=== PATIENT | male | born 1965 | race Caucasian/White ===

== ENCOUNTER → 2025-06-05 10:28 | Outpatient (REF) | payer BC, SELFPAY | LOC: RCS 10:28 | PROVIDERS: ATTENDING PHYSICIAN Nurse Practitioner Adult Health | DX: I49.8 Other specified cardiac arrhythmias (principal) | CPT/HCPCS: 93225; 93226 ==

== ENCOUNTER 2025-06-16 01:10 | Emergency (ER) | payer BC, SELFPAY ==
[2025-06-16 01:14] VITALS: BP 152/104
[2025-06-16 01:24] VITALS: BMI 28.5
--- NOTE | 2025-06-16 01:24 | ED.GENMED ---
History of Present Illness
General
Chief Complaint: Heart Rate Problem
Source: patient
Exam Limitations: none
Time Seen by Provider: 06/16/25 01:22
Nursing documentation reviewed up to this point in time: agreed with
History of Present Illness
History of Present Illness:
60-year-old male with a history of sleep apnea, recent diagnosis of A-fib, presents to the ER today with concerns of a episode of palpitations waking him up from sleep. This occurred at around 11:30 PM. Patient believes it lasted probably 30 to 45
minutes. He reports that when he lays on his left side, he will sometimes feel palpitations. This is the most noticeable episode he has had--previously, he would just relax and they would go away on their own. Previously, these episodes have been
intermittent for the past few months and he described the symptoms to his PCP who ordered Holter monitoring which revealed that he was in A-fib most of the time. Patient denies chest pain or shortness of breath, denies dizziness. Currently, he is
asymptomatic. He denies any recent infections, any recent fevers or chills. He does not recall what his heart rate was at earlier today. He reports that currently he is not taking anything for rate control. He is not taking any beta-mamie. He
is not on any anticoagulation because of his low chads-vasc score. He is acutely hypertensive in the ER however patient reports that his blood pressure is usually systolically 130s and his PCP has decided not to start him on any medication just
yet. He denies back pain, abdominal pain, nausea, vomiting, lightheadedness, syncopal episodes. He drinks 2 cups of coffee daily. He does not smoke. He is compliant with his CPAP mask.
Past History
Past History
ED Past Medical History: None
ED Past Surgical History: Appendectomy
Social History
Tobacco: Non-smoker
Drug: None
Personal:
Living: with family
Family History
Family History: Negative Early CAD, CAD or Other
Review of Systems
Review of Systems
All Other Systems: ROS reviewed and negative except as documented in HPI and ROS
Phy Exam
Physical Exam
Physical Exam:
General: Patient is well appearing and in no acute distress; non-toxic
Skin: Warm and dry, no rashes or lesions
Head: Normocephalic, atraumatic
Eyes: Sclera non-icteric. EOMs intact.
Cardiac: Heart rate irregularly irregular, no murmurs
Peripheral Vascular: No lower extremity swelling or edema
Pulm: Normal respiratory effort, no wheezes, rales, rhonchi
Neuro: CN II-XII intact, no focal neurologic deficits.
Psychiatric: Appropriate mood and affect.
Course
Orders/Labs/Results
Orders:
Orders
06/16/25 01:20
Electrocardiogram (*1) Urgent
Reason for Study: Other
Other Reason for Exam: Respiratory Distress
Cardiac Monitoring- Treatment ONCE
EKG- Treatment ONCE
IV Insert/Care/Rem.- Treatment PRN
Pulse Ox/cont/shift [RESP] Urgent
Quantity: 1
Special Instructions: continuous pulse ox
06/16/25 01:30
Complete Blood Count/With Diff Urgent
Comprehensive Metabolic Panel Urgent
Free T4 Urgent
Magnesium Urgent
Comment: ADD ON
NT-proBNP Urgent
TSH Reflex To Free T4 Urgent
Comment: ADD ON
Troponin I Urgent
06/16/25 01:39
Add On- LAB Urgent
Tests Added?: magnesium, TSH reflex T4
Abnormal Lab Results
06/16/25
01:30
RBC 3.49 L 10^6/uL
(4.70-6.10)
Hgb 11.4 L g/dL
(13.0-18.0)
Hct 33.9 L %
(39.0-52.0)
MCV 97.1 H fL
(80.0-94.0)
MCH 32.7 H pg
(27.0-31.0)
Plt Count 126 L 10^3/uL
(130-400)
Monocytes % 10.4 H %
(1.7-9.3)
Eosinophils % 6.4 H %
(0-6)
Glucose 103 H mg/dl
(70-99)
TSH (Reflex) 5.61 H uIU/ml
(0.47-4.68)
06/16/25 01:30
06/16/25 01:30
Vital Signs
Initial and Last Documented VS:
Initial Vital Signs
Temp Pulse Resp BP Pulse Ox
98.4 F 75 20 152/104 100
06/16/25 01:14 06/16/25 01:14 06/16/25 01:14 06/16/25 01:14 06/16/25 01:14
Last Documented Vital Signs
Temp Pulse Resp BP Pulse Ox
98.4 F 62 13 152/104 96
06/16/25 01:14 06/16/25 01:45 06/16/25 01:45 06/16/25 01:14 06/16/25 01:45
MDM/Problems Addressed
Differential Diagnosis Includes:
Differentials include atrial fibrillation, sinus tachycardia, ACS, hyperthyroidism, electrolyte derangement
MDM/Problems Addressed:
60-year-old male with recent new diagnosis of A-fib presents to the ER today with concerns of palpitations. Symptoms resolved upon arrival to the ER. On physical exam, he is well-appearing no acute distress his heart rate is currently in the 60s
to 70s. He is hypertensive. Will monitor on telemetry. Will check blood work. Patient has a cardiology appointment with CBC on June 20 at 4:10 PM.
Labs reviewed, patient has mild anemia today this will need to be rechecked with primary care provider. Mild thrombocytopenia noted which PCP is aware of and has been documented no evidence of bleeding no signs of symptoms of GI bleeding today.
Reviewed CMP, mild thrombocytopenia noted last time checked on June 03, 2025 at that time was 122, today 126 PCP aware who will check vitamin B-12 and folate levels as well. Reviewed telemetry, no rapid A-fib noted, no tachycardic rhythm.
Troponin undetectable. ED attending aware of case. No indication for repeat at this time as patient is chest pain-free and did not have chest pain during this past evening. proBNP 630. No signs of fluid overload or CHF today. Patient is stable to
follow up as an outpatient with his scheduled cards appointment later this week. Will hold off on anticoagulation at this time.
Chronic conditions affecting care:
sleep apnea
*Pulse Oximetry
SaO2: 100
Oxygen Mode of Delivery: Room air
Patient hypoxic: no
*EKG
Interpreted by ED Provider?: Yes
EKG Intrepretation Date: 06/16/25
Interpretation: abnormal
Comparison EKG: changes noted (patient previously in normal sinus rhyth with rsr' with slight ST elevation in V1)
Heart Rate: 71
Rate: normal
Rhythm: a-fib
[place]: normal axis
QRS Pattern: normal QRS
Ischemia: no ischemia
*Critical Care Note
Total Time (30-74mins, 75-104mins- exclusive of procedures): Not Applicable
Data Reviewed
Review of Other/Old Records Reveals: Records (Reviewed visit from June 03, 2025 patient seen by PCP Holter monitor was ordered blood pressure was controlled at that time we did recommend a low dose of Toprol but patient will start a blood pressure
log instead) and Discharge Summary (no discharge summary in [facility] to review)
Source: patient and records
Patient Management
Escalation/DeEscalation of care consider admission/obs:
No indication for admission at this time
ED Attending Note
-
Portions of this chart may have been created with voice recognition software.� Occasional wrong word or��sound alike� substitutions may have occurred due to the inherent limitations of voice recognition software.
Discharge Plan
Departure
Patient Disposition: Home (Routine Discharge)
Date of Disposition: 06/16/25
Time of Disposition: 02:44
Patient with high blood pressure during this ER visit?: Yes
Condition: Good
Discharge Problem:
Atrial fibrillation
Instructions: Atrial Fibrillation (DC), Palpitations (DC), BLOOD PRESSURE
Prescriptions:
No Action
hydrocodone-acetaminophen 1 TABLET tablet
1 - 2 tab PO Q4HPRN PRN (Reason: moderate to severe pain) Qty: 20 0RF
Referrals:
Reena Olson MD [Family Provider, Internal Medicine]
Beatriz Healy MD [Active, Cardiology] - Keep scheduled appt
Activity Restrictions/Additional Instructions:
As discussed, please follow-up with your scheduled cardiology appointment on Monday. Please continue to monitor your symptoms.
Please return should you develop CHEST PAIN, JAW PAIN, PERSISTENT LEFT-SIDED ARM OR SHOULDER PAIN, DIZZINESS, LIGHTHEADEDNESS, SHORTNESS OF BREATH, WEAKNESS IN ONE-SIDED BODY VERSUS OTHER, PARESTHESIAS, CONFUSION, OR ANY OTHER SIGNS OR SYMPTOMS
WORRISOME TO YOU.
Interventions
Interventions:
*Risk Screen - Suicide Last Done: 06/16/25 01:14
*General Assessment Last Done: 06/16/25 01:14
*Neglect/Abuse Screening Last Done: 06/16/25 01:14
*ED- Fall Risk Assessment Last Done: 06/16/25 01:14
*ED COVID-19 Vaccine History Last Done: 06/16/25 01:14
*Nursing Disposition Last Done: 06/16/25 03:07
ED- Cardiac Assessment Last Done: 06/16/25 01:25
ED- Pulmonary Assessment Last Done: 06/16/25 01:25
Discharge Date and Time
Print Language: COMORAN
[2025-06-16 01:36] LABS: Hematocrit 33.9 % (39.0-52.0); Hemoglobin 11.4 g/dL (13.0-18.0); Mean Corp Hgb Conc. 33.6 g/dL (33.0-37.0); Mean Corpuscular Volume 97.1 fL (80.0-94.0); Nucleated Red Blood Cells % 0 % (-); Platelet Count 126 10^3/uL (130-400); Red Cell Dist. Width 13.3 % (11.5-14.5)
[2025-06-16 02:00] VITALS: BP 131/84
[2025-06-16 02:02] LABS: ALT (SGPT) 36 U/L (0-50); AST (SGOT) 33 U/L (17-59); Albumin 4.9 g/dl (3.5-5.0); Alkaline Phosphatase 64 U/L (38-126); Blood Urea Nitrogen 17 mg/dl (9-20); Calcium 9.4 mg/dl (8.4-10.2); Carbon Dioxide 28 mmol/L (22-30); Chloride 106 mmol/L (98-107); Estimated Creatinine Clearance 97 ml/min; Glucose 103 mg/dl (70-99); Magnesium 2.0 mg/dl (1.6-2.3); Potassium 3.8 mmol/L (3.5-5.1); Sodium 140 mmol/L (135-145); Total Protein 7.4 g/dl (6.3-8.2); eGFR > 60.00
[2025-06-16 02:14] LABS: Troponin I < 0.012 ng/ml
== END 2025-06-16 03:07 | disposition home or self-care (01) ==
LOC: EMR 01:10
PROVIDERS: EMERGENCY PHYSICIAN Emergency Medicine; FAMILY PHYSICIAN Internal Medicine
DX: I48.91 Unspecified atrial fibrillation (principal); R03.0 Elevated blood-pressure reading, without diagnosis of hypertension; D64.9 Anemia, unspecified; D69.6 Thrombocytopenia, unspecified; G47.30 Sleep apnea, unspecified
CPT/HCPCS: 99284; 80053; 83735; 83880; 84439; 84443; 84484; 85025; 93005

== ENCOUNTER → 2025-07-02 07:18 | Outpatient (REF) | payer BC, SELFPAY | LOC: HWRCS 07:18 | PROVIDERS: ATTENDING PHYSICIAN Internal Medicine Cardiovascular Disease; FAMILY PHYSICIAN Nurse Practitioner Adult Health | DX: I48.91 Unspecified atrial fibrillation (principal) | CPT/HCPCS: 93306 ==

== ENCOUNTER 2025-07-11 09:48 | Day surgery (SDC) | payer BC, SELFPAY ==
--- NOTE | 2025-07-11 13:17 | ITS.CL.CARDI ---
Machine Whitener - Cardioversion
Cardioversion
Procedure Report:
Procedure: Direct current electrical cardioversion
Pre-operative diagnosis: Persistent atrial fibrillation
Post-operative diagnosis: Persistent atrial fibrillation status post DC cardioversion to sinus rhythm
Anesthesia: MAC
Attending Physician: Edison Blackmon MD
Procedure Description: The patient was brought to the electrophysiology laboratory in the fasting state. Adherence to anticoagulation regimen was confirmed. Informed consent was obtained from the patient prior to the start of the procedure.
Electrodes were placed on the patient and connected to an external defibrillator. Monitoring of blood pressure, ECG tracings, and pulse oximetry was initiated. The pads were applied to the patient in the anterior and posterior positions. The patient
was sedated by the anesthesiologist. A 200 joule biphasic synchronized shock was delivered to the patient under MAC anesthesia. Sinus rhythm was successfully restored. The patient recovered uneventfully from MAC anesthesia. There were no immediate
post-procedure complications. The patient left the lab in good condition. The attending physician was present throughout the entire procedure.
Impression: Successful direct current cardioversion with christian of sinus rhythm after one 200 joule biphasic synchronized shock.
== END 2025-07-11 12:05 | disposition home or self-care (01) ==
LOC: CATH 09:48
PROVIDERS: ATTENDING PHYSICIAN Internal Medicine Cardiovascular Disease; FAMILY PHYSICIAN Internal Medicine; OTHER PHYSICIAN Internal Medicine Cardiovascular Disease
DX: I48.19 Other persistent atrial fibrillation (principal)
CPT/HCPCS: 92960; 93005

== ENCOUNTER 2025-08-21 09:43 | Emergency (ER) | payer OTHER, SELFPAY ==
[2025-08-21 09:45] VITALS: BP 155/107
--- NOTE | 2025-08-21 10:23 | ED.GENMED ---
History of Present Illness
General
Chief Complaint: Heart Rate Problem
Time Seen by Provider: 08/21/25 09:49
History of Present Illness
History of Present Illness:
Patient is a 60-year-old male with history of paroxysmal A-fib currently not on anticoagulation presenting to the emergency department with palpitations. Per chart patient was diagnosed with atrial fibrillation on outpatient Holter monitoring. He
did have a cardioversion completed on July 11. He did stop Eliquis on August 08 as he wanted to play ice hockey. This past week he notes that he would go back into A-fib. His watch did alert him. He did restart Eliquis this past week. Today
when he was walking he started to get a little dizzy and his heart rate was in the 110s. He did not perform an EKG but felt as if he was in A-fib again. He pauses and since then does feel a lot better. He denies any chest pain difficulty
breathing nausea vomiting chest pain. This was the first time he got lightheaded dizzy. He does state that during his exercising he has noticed that he is going into A-fib more frequently.
Past History
Past History
ED Past Medical History: None
ED Past Surgical History: Appendectomy
Social History
Tobacco: Non-smoker
Drug: None
Personal:
Living: with family
Family History
Family History: Negative Early CAD, CAD or Other
Phy Exam
Physical Exam
Physical Exam:
GENERAL: in no acute distress
HEENT: normocephalic, extraocular movements intact, moist oral mucosa
NECK: normal inspection
RESPIRATORY: no respiratory distress, clear to auscultation bilaterally
CARDIOVASCULAR: regular rate and rhythm
ABDOMEN/: soft, non-distended, non-tender to palpation, no rebound or guarding
EXTREMITIES: non-tender, no edema/swelling
NEUROLOGIC: awake and alert, moves all extremities
SKIN: warm
Course
Orders/Labs/Results
Orders:
Orders
08/21/25 09:50
ECG [Electrocardiogram (*1)] Urgent
Reason for Study: Palpitations
EKG- Treatment ONCE
08/21/25 10:19
Basic Metabolic Panel Urgent
Complete Blood Count/With Diff Urgent
Magnesium Urgent
Abnormal Lab Results
08/21/25
10:19
RBC 4.36 L 10^6/uL
(4.70-6.10)
MCH 31.4 H pg
(27.0-31.0)
Immature Gran % 0.8 H %
(0-0.5)
08/21/25 10:19
08/21/25 10:19
Vital Signs
Initial and Last Documented VS:
Initial Vital Signs
Temp Pulse Resp BP Pulse Ox
98.2 F 107 18 155/107 99
08/21/25 09:45 08/21/25 09:45 08/21/25 09:45 08/21/25 09:45 08/21/25 09:45
Last Documented Vital Signs
Temp Pulse Resp BP Pulse Ox
98.2 F 107 18 155/107 99
08/21/25 09:45 08/21/25 09:45 08/21/25 09:45 08/21/25 09:45 08/21/25 10:24
MDM/Problems Addressed
Differential Diagnosis Includes:
Patient is a 60-year-old male with history of paroxysmal A-fib presenting to the emergency department with concerns for being in A-fib. On arrival patient's vital signs are notable for being in the 90s. During my evaluation patient's heart rate
and rhythm on the monitor was normal sinus rhythm. Exam is otherwise reassuring. Concern for paroxysmal A-fib versus electrolyte derangement. Consider thyroid abnormality. After shared decision making we will check blood work. EKG per my
interpretation normal sinus rhythm with prolonged MN interval. I did discuss with cardiology. They did state that patient has a EP appointment on September 08. Recommended keeping that appointment. Recommending staying on Eliquis. Given the
patient is paroxysmal and not appropriately anticoagulated he is not a candidate for cardioversion or antiarrhythmics at this time.
*Pulse Oximetry
SaO2: 99
Oxygen Mode of Delivery: Room air
Patient hypoxic: no
*Critical Care Note
Total Time (30-74mins, 75-104mins- exclusive of procedures): Not Applicable
Update Note
Update Note:
Patient remained in sinus rhythm during his visit. Patient without any recurrence of his symptoms since he has been here. Blood work reassuring. Will discharge patient at this time. He will stay on Eliquis. He will keep his appointment with
cardiology on September 08. Strict return precautions givwn
ED Attending Note
-
Portions of this chart may have been created with voice recognition software.� Occasional wrong word or��sound alike� substitutions may have occurred due to the inherent limitations of voice recognition software.
Discharge Plan
Departure
Patient Disposition: Home (Routine Discharge)
Date of Disposition: 08/21/25
Time of Disposition: 11:05
Patient with high blood pressure during this ER visit?: Yes
Discharge Problem:
Paroxysmal A-fib
Instructions: Atrial Fibrillation (DC)
Prescriptions:
No Action
hydrocodone-acetaminophen 1 TABLET tablet
1 - 2 tab PO Q4HPRN PRN (Reason: moderate to severe pain) Qty: 20 0RF
Eliquis 5 mg Tablet
5 mg PO BID
Referrals:
Reena Olson MD [Family Provider, Internal Medicine]
Activity Restrictions/Additional Instructions:
Thank You for choosing [facility].
It was a pleasure meeting you and taking part in your care. We hope for your continued healing and wellness.
You were seen in the Emergency Department today for atrial fibrillation. While you were here we performed blood work, which was reassuring. Please make sure you continue taking the Eliquis as discussed. Please keep your appointment with cardiology
on September 08.
We would like for you to follow up with your primary care physician for further evaluation. If you experience fever, worsening of your symptoms, or develop any other new or concerning symptoms, please return to the Emergency Department immediately.
Please see the attached sheet for additional information.
Interventions
Interventions:
*Risk Screen - Suicide Last Done: 08/21/25 09:45
*General Assessment Last Done: 08/21/25 09:45
Discharge Date and Time
Print Language: SLOVAK
[2025-08-21 10:40] LABS: Hematocrit 40.1 % (39.0-52.0); Hemoglobin 13.7 g/dL (13.0-18.0); Mean Corp Hgb Conc. 34.2 g/dL (33.0-37.0); Mean Corpuscular Volume 92.0 fL (80.0-94.0); Nucleated Red Blood Cells % 0 % (-); Platelet Count 139 10^3/uL (130-400); Red Cell Dist. Width 12.1 % (11.5-14.5)
[2025-08-21 10:56] LABS: Blood Urea Nitrogen 14 mg/dl (9-20); Calcium 9.3 mg/dl (8.4-10.2); Carbon Dioxide 30 mmol/L (22-30); Chloride 103 mmol/L (98-107); Glucose 93 mg/dl (70-99); Magnesium 2.0 mg/dl (1.6-2.3); Potassium 4.1 mmol/L (3.5-5.1); Sodium 135 mmol/L (135-145); eGFR > 60.00
== END 2025-08-21 11:18 | disposition home or self-care (01) ==
LOC: EMR 09:43
PROVIDERS: EMERGENCY PHYSICIAN Student in an Organized Health Care Education/Training Program; FAMILY PHYSICIAN Internal Medicine
DX: I48.0 Paroxysmal atrial fibrillation (principal); Z90.49 Acquired absence of other specified parts of digestive tract
CPT/HCPCS: 99284; 80048; 83735; 85025; 93005

== ENCOUNTER 2025-08-29 09:19 | Emergency (ER) | payer OTHER, SELFPAY ==
[2025-08-29 09:23] VITALS: BP 165/103
[2025-08-29 11:19] VITALS: BP 165/102
[2025-08-29 11:32] LABS: Hematocrit 40.8 % (39.0-52.0); Hemoglobin 14.1 g/dL (13.0-18.0); Mean Corp Hgb Conc. 34.6 g/dL (33.0-37.0); Mean Corpuscular Volume 90.9 fL (80.0-94.0); Platelet Count 147 10^3/uL (130-400); Red Cell Dist. Width 12.2 % (11.5-14.5)
[2025-08-29 11:46] LABS: ALT (SGPT) 42 U/L (0-50); AST (SGOT) 39 U/L (17-59); Albumin 5.0 g/dl (3.5-5.0); Alkaline Phosphatase 86 U/L (38-126); Blood Urea Nitrogen 11 mg/dl (9-20); Calcium 9.6 mg/dl (8.4-10.2); Carbon Dioxide 29 mmol/L (22-30); Chloride 102 mmol/L (98-107); Estimated Creatinine Clearance 97 ml/min; Glucose 93 mg/dl (70-99); Potassium 4.2 mmol/L (3.5-5.1); Sodium 136 mmol/L (135-145); Total Protein 7.8 g/dl (6.3-8.2); eGFR > 60.00
--- NOTE | 2025-08-29 11:47 | ED.GENMED ---
History of Present Illness
General
Chief Complaint: Heart Rate Problem
Time Seen by Provider: 08/29/25 11:04
History of Present Illness
History of Present Illness:
60-year-old male with history of paroxysmal A-fib presents emergency department for evaluation of recurrent bouts of palpitations abdominal A-fib seen on his Gar[employer] watch. He went a cardioversion for A-fib approximate 6 weeks ago, sinus emergency
department last week for a similar complaint he was found to be in sinus rhythm. Presents today reporting heart rates return after a standing walk exceeding 130 with again his Garmin watch alerting him to being in A-fib. Currently feels well with
no complaints. No chest pain or dyspnea.
Past History
Past History
ED Past Medical History: None
ED Past Surgical History: Appendectomy
Social History
Tobacco: Non-smoker
Drug: None
Personal:
Living: with family
Family History
Family History: Negative Early CAD, CAD or Other
Review of Systems
Review of Systems
Allergies reviewed?: Yes
All Other Systems: ROS reviewed and negative except as documented in HPI and ROS
Phy Exam
Physical Exam
Physical Exam:
GEN: Well appearing, NAD, WDWN
HEENT: Oral mucosa moist, no scleral icterus
Cardiac: Regular rate and rhythm, no murmur
Lung: No respiratory distress, no tachypnea, lungs clear to auscultation
MSK: No gross deformity or injuries
Skin: Good color, no pallor or jaundice, no rashes
Neuro: AO x3, moves all extremities freely
Psych: Calm, cooperative
Course
Orders/Labs/Results
Orders:
Orders
08/29/25 09:26
Electrocardiogram (*1) Urgent
Reason for Study: Atrial Fibrillation
EKG- Treatment ONCE
08/29/25 11:16
Electrocardiogram (*1) Urgent
Reason for Study: Atrial Fibrillation
08/29/25 11:25
Complete Blood Count/No Diff Urgent
08/29/25 11:26
Comprehensive Metabolic Panel Urgent
08/29/25 11:49
Metoprolol Xl [Toprol Xl] 25 mg PO NOW STA
Abnormal Lab Results
08/29/25
11:25
RBC 4.49 L 10^6/uL
(4.70-6.10)
MCH 31.4 H pg
(27.0-31.0)
08/29/25 11:25
08/29/25 11:26
Vital Signs
Initial and Last Documented VS:
Initial Vital Signs
Temp Pulse Resp BP Pulse Ox
98.1 F 92 18 165/103 100
08/29/25 09:23 08/29/25 09:23 08/29/25 09:23 08/29/25 09:23 08/29/25 09:23
Last Documented Vital Signs
Temp Pulse Resp BP Pulse Ox
98.1 F 88 16 165/102 100
08/29/25 09:23 08/29/25 11:47 08/29/25 11:45 08/29/25 11:19 08/29/25 11:49
MDM/Problems Addressed
MDM/Problems Addressed:
Telemetry noted patient to have multiple runs of atrial tachycardia that self terminated. He was not in A-fib at any point. Discussed case with his glove finisher on-call and will add beta-mamie therapy, he is provided with rhythm strips for
follow-up with cardiology
*Pulse Oximetry
SaO2: 100
Oxygen Mode of Delivery: Room air
Patient hypoxic: no
*Critical Care Note
Total Time (30-74mins, 75-104mins- exclusive of procedures): Not Applicable
ED Attending Note
-
Portions of this chart may have been created with voice recognition software.� Occasional wrong word or��sound alike� substitutions may have occurred due to the inherent limitations of voice recognition software.
Discharge Plan
Departure
Patient Disposition: Home (Routine Discharge)
Date of Disposition: 08/29/25
Time of Disposition: 11:48
Patient with high blood pressure during this ER visit?: No
Discharge Problem:
Atrial tachycardia
Instructions: Tachycardia
Prescriptions:
New
metoprolol succinate 25 mg tablet extended release 24 hr
25 mg PO DAILY Qty: 30 0RF
No Action
hydrocodone-acetaminophen 1 TABLET tablet
1 - 2 tab PO Q4HPRN PRN (Reason: moderate to severe pain) Qty: 20 0RF
Eliquis 5 mg Tablet
5 mg PO BID
Activity Restrictions/Additional Instructions:
Continue with follow up plan with Dr Stewart on September 08
Interventions
Interventions:
*Risk Screen - Suicide Last Done: 08/29/25 09:23
*General Assessment Last Done: 08/29/25 09:23
*Neglect/Abuse Screening Last Done: 08/29/25 09:23
*ED- Fall Risk Assessment Last Done: 08/29/25 11:23
*ED COVID-19 Vaccine History Last Done: 08/29/25 11:23
*ED Influenza Vaccine History Last Done: 08/29/25 11:23
*Nursing Disposition Last Done: 08/29/25 12:15
ED- Cardiac Assessment Last Done: 08/29/25 11:18
ED- Pulmonary Assessment Last Done: 08/29/25 11:18
Discharge Date and Time
Discharge Date/Time: 08/29/25 12:16
Print Language: ARABIC
[2025-08-29] MEDS: TOPROL XL 25 MG PO (11:55)
== END 2025-08-29 12:16 | disposition home or self-care (01) ==
LOC: EMR 09:19
PROVIDERS: Physician Assistant; EMERGENCY PHYSICIAN Student in an Organized Health Care Education/Training Program; FAMILY PHYSICIAN Nurse Practitioner Adult Health
DX: I47.19 Other supraventricular tachycardia (principal); I48.91 Unspecified atrial fibrillation; I44.0 Atrioventricular block, first degree; Z90.49 Acquired absence of other specified parts of digestive tract
CPT/HCPCS: 99283; 80053; 85027; 93005

== ENCOUNTER 2025-09-29 10:25 | Day surgery (SDC) | payer OTHER, SELFPAY ==
[2025-09-22 13:32] VITALS: BMI 27.2
[2025-09-22 13:52] LABS: Hematocrit 37.2 % (39.0-52.0); Hemoglobin 12.6 g/dL (13.0-18.0); Mean Corp Hgb Conc. 33.9 g/dL (33.0-37.0); Mean Corpuscular Volume 92.3 fL (80.0-94.0); Nucleated Red Blood Cells % 0 % (-); Platelet Count 157 10^3/uL (130-400); Red Cell Dist. Width 13.2 % (11.5-14.5)
[2025-09-22 14:39] LABS: ALT (SGPT) 29 U/L (0-50); AST (SGOT) 26 U/L (17-59); Albumin 4.9 g/dl (3.5-5.0); Alkaline Phosphatase 63 U/L (38-126); Blood Urea Nitrogen 14 mg/dl (9-20); Calcium 9.2 mg/dl (8.4-10.2); Carbon Dioxide 29 mmol/L (22-30); Chloride 100 mmol/L (98-107); Estimated Creatinine Clearance 100 ml/min; Glucose 97 mg/dl (70-99); Potassium 4.0 mmol/L (3.5-5.1); Sodium 137 mmol/L (135-145); Total Protein 7.5 g/dl (6.3-8.2); eGFR > 60.00
[2025-09-29] VITALS (13 sets, daily range): BP systolic 105–145; BP diastolic 66–91
[2025-09-29] MEDS: NSS 500 IV (12:22)
[2025-09-29 13:59] LABS: ACT-LR - POC 395 Seconds (116-155)
[2025-09-29 14:24] LABS: ACT-LR - POC 306 Seconds (116-155)
[2025-09-29 14:46] LABS: ACT-LR - POC 313 Seconds (116-155)
[2025-09-29 15:18] LABS: ACT-LR - POC 305 Seconds (116-155)
--- NOTE | 2025-09-29 15:53 | ITS.CL.ABL ---
[employer] - Ablation
Ablation
Procedure Report:
AFIB / Flutter ablation:
Mr. Scott is a very pleasant 60 yr old gentleman with h/o persistent AF and flutters with recurrent arrhtyhmia and is recommended AF ablation. Patient presented today to the EP lab for atrial fibrillation / flutter ablation.
Date of Procedure:
09/29/2025
Indications:
Recurrent atrial fibrillation / atrial flutter
Pre-Operative Diagnosis:
Persistent atrial fibrillation /Atrial flutter
Post-Operative Diagnosis:
Persistent atrial fibrillation /Atrial flutter
Procedure Performed:
Atrial fibrillation ablation with pulmonary vein isolation
Left atrial flutter � roof dependent ablation
Posterior wall isolation
Mitral isthmus ablation for boni-mitral flutter ablation
Biatrial atrial flutter ablation
focal right atrial superior renae cava tachycardia ablation
Cavo tricuspid isthmus dependent flutter ablation
Performing Physician:
William Stewart MD
Assistants:
EP staff
Anesthesia:
See anesthesia records
Detailed Description of the Procedure:
Written informed consent was obtained from the patient after a full explanation of the risks and benefits of the procedure including the risks of sedation and anesthesia.
The patient was brought to the electrophysiology laboratory in stable condition in fasting state. Continuous electrocardiographic and hemodynamic monitoring was initiated.
The initial rhythm was atrial fibrillation.
Time out:
The procedure site was meticulously prepared with surgical scrub and allowed to dry with no pooling. Sterile draping was applied to cover the procedure site. The image intensifier was draped with sterile bag and positioned over the patient.
Prior to the start of the procedure a surgical pause was performed with in agreement from anesthesia, EP staff with double identifier and explanation of the procedure, plan and site of the procedure stated with allergies and medications and
pertinent labs reviewed.
After infusion of local anesthetic, vascular access was obtained under ultrasound guidance and sheaths were placed over guide wire as detailed below. The images were stored in patient chart.
Sheaths:
Agilis sheath in right femoral vein upgraded from 8Fr in right femoral vein
9Fr in right femoral vein
7Fr in right femoral vein.
Catheters:
The Affera Sphere 9 catheter -bidirectional D/F - at locations of HRA, RV, LA and LV.
ICE catheter - at locations of RA, SVC, and RV.
Bard decapolar caheter in CS and RA
A 7000 units of heparin was given.
Intracardiac ECHO:
An 8-[place] AcuNav intracardiac ECHO (ICE) probe was advanced through the 9-Kitt[place] sheath in the right femoral vein into the right atrium under fluoroscopic and ICE ultrasound image guidance and a baseline ECHO study was performed. The left atrial
size was dilated. There was trace tricuspid regurgitation. There was mild to moderate mitral regurgitation. The aortic valve was normal. There was normal left ventricular size and function. There is no pericardial effusion. All the four veins were
identified and has good flow identified. There was dense spontaneous contrast noted at the mouth of the [place]. No definite clot seen.
During the procedure, ICE was used for monitoring of complications, guidance of trans-septal puncture, monitor the catheter position and tracking ablation lesions. No change in the pericardial space noted throughout the procedure.
Trans-septal Puncture:
Heparin was initiated and infused to maintain appropriate ACT. A J-tipped guidewire was advanced through into the superior vena cava under fluoroscopic and ICE guidance. The Agilis sheath was advanced into the superior vena cava over a guidewire. A
BRK needle was advanced over the stylet inside the Agilis sheath. The apparatus was withdrawn until it was in contact with the fossa ovalis. The position was adjusted based on fluoroscopy and ultrasound images from ICE. Under fluoroscopic,
hemodynamic and ICE ultrasound guidance, left atrium was cannulated by advancing the needle. Once atrial septum was cannulated, the needle was pulled back and the guide wire was advanced through the needle into the left atrium. The guide wire was
advanced into the left superior pulmonary vein. Both the sheath and the dilator was advanced into the left atrium. The dilator with the needle was withdrawn. Blood was aspirated from the Agilis sheath and arterial blood confirmed. The sheath was
flushed. Saline injection noted into the left atrium on ICE. The waveform of the LA pressure was recorded. The mapping catheter was advanced in the Agilis sheath into the left pulmonary vein.
3D Electroanatomic Mapping:
Using the Sphere 9 Affera catheter advanced through Agilis sheath into the left atrium, an electroanatomic map (EAM) of the left atrium was created using [employer] mapping system with [employer] software. The map was used for localization of catheter
position and tacking of ablation lesions.
The EAM of the left atrium showed a total of 4 PVs with two left and the two right sided pulmonary veins with AF in the veins. There was sccattered scarring noted in the LA. The posterior wall had scattered signals. There was a large areas of scar
noted on the anterior as well. The LA was dilated.
Following the EAM, preparation were made for ablation.
Ablation:
Ablation # 1: Atrial fibrillation ablation - Pulmonary vein Isolation:
Pulsed field ablation was performed using an open irrigation, bidirectional, contact sensing, dual energy ablation catheter (Affera sphere -9) by completing the circumferential lesions around the left and right pulmonary veins achieving pulmonary
vein isolation.
All PVI were rechecked at the end of the case and remained isolated with dissociated and local capture with pacing. Entrance and exit block were demonstrated in all veins.
Ablation # 2: Roof line Formation:
There was a clear channel of electrical activity left in the posterior wall with multiple CFAE and AF areas on the roof and ablation in that area increased the risk of atrial flutter and decision was made to create a roof line to block a slow
conduction. A set of pulsed field ablations were placed on the roof line connecting the left superior pulmonary vein ablation lesions to the right superior pulmonary vein lesions rings.
Ablation # 3: Posterior wall isolation with the Box lesions set Formation:
There was a significant fractionation seen in the posterior wall and LA AF foci along with CFAE made it clear as the posterior wall is critical in maintaining the atrial fibrillation and the decision was made to isolate the posterior wall by
creating a �Box� lesions.
A set of Pulsed field ablations were placed on the floor line connecting the left inferior pulmonary vein ablation lesions to the right inferior pulmonary vein lesions rings.
Ablation # 4: Mitral isthmus ablation for boni-mitral flutter ablation
Mitral line was done for the mitral isthmus from the left inferior PV antrum to the mitral annulus at the mitral isthmus. The pulsed field ablations were placed at the isthmus and switched to radiofrequency once close to the mitral annulus.
Cardioversion:
A 200J shock was delivered via Zoll patched restoring the sinus rhythm.
The sphere 9 in the posterior wall showed entrance block and the pacing from the posterior wall showed no exit from the box lesions confirming the exit block.
Flutter was still inducible and was thought to be biatrial in origin.
Ablation # 5: Biatrial atrial flutter ablation
The earliest point was noted to be at the Garo bundle escaping from the right side involving both atria. There is no other significant activity left on the left atrial posterior wall and small activity at the left atrial anterior wall was enough
to sustain this arrhythmia. LA septal wall was ablated.
CTI dependent flutter:
The tachycardia was again inducible and was 300 ms in CL. It was mapped in detail in the LA and was noted to be coming from the right atrium. It was typical on the morphology.
The tachycardia was mapped in the right atrium and while in the RA, it was noted to have large areas of scar in the RA. The tachycardia was typical but was changed to 260 ms CL in the RA while mapping.
Ablation # 6: Focal right atrial superior vena cava tachycardia ablation
The new tachycardia was 260 ms and was mapped at the earliest point at the SVC junction to right atrium on the posterior wall.
The highly fractionated signals identified that were originating the tachycardia and was noted as micro-reentry atrial flutter vs atrial tachycardia.
The point of interest was ablated and tachycardia switched to 400 ms tachycardia and was biatrial. Additional ablations on the septal side was ablated on the right atrium as well that terminated the tachycardia to sinus rhythm.
Ablation # 7: Cavo tricuspid isthmus dependent flutter ablation
The CTI ablation was done using pulsed field and radiofrequency with Affera sphere -9 ablation, open irrigation, force-sensing bidirectional ablation catheter in the cavotricuspid isthmus from the tricuspid annulus to the IVC ridge.
Once the ablation catheter reach near the IVC, the ablation energy was changed to pulsed field.
-Bidirectional block was confirmed across the CTI line with differential pacing.
-Double potentials were spaced greater than 125 msec apart.
-The conduction time across the CTI line from proximal CS pacing was 225 msec.
-EAM of the right atrium was obtained with coronary sinus pacing and showed a line of block at the CTI.
-The time interval just lateral to the ablation lesions was 188 msec and the lateral wall was 225 msec
- All these maneuvers confirmed the block at the CTI line.
- Post ablation HV interval was unchanged at 54msec
The AV migel functions are deemed within normal range. The HV was normal.
All PVI were rechecked at the end of the case. Entrance and exit block were demonstrated.
Procedure End
ICE study was done again that showed no epicardial accumulation. No complications noted.
Following the completion of the EP study, catheters were removed. The sheaths were removed and hemostasis achieved with Fig of 8 suture and manual compression after acceptable ACT is achieved.
Left atrial Pressure:
Pre-Procedure: Mean LA pressure was 8mmHg
Post-Procedure: Mean LA pressure was 10mmHg
Pre-Procedure: Mean RA pressure was 9mmHg
Estimated Blood loss:
<10 cc
Specimens Removed:
None.
Implants / Devices:
None
Urine output:
None
Packs / Drains/ Tubes:
None
Instrument / Sponge Count Correct:
Yes
Complications of the Procedure:
None
Condition of Patient at Time of Transfer:
Hemodynamically stable with no neurological or vascular compromise.
Summary:
Successful atrial fibrillation ablation with pulmonary vein isolation, posterior wall isolation, roof flutter ablation, Mitral isthmus ablation for boni-mitral flutter ablation, Biatrial atrial flutter ablation
== END 2025-09-29 19:23 | disposition home or self-care (01) ==
LOC: CATH 10:25
PROVIDERS: ATTENDING PHYSICIAN Internal Medicine Cardiovascular Disease; FAMILY PHYSICIAN Nurse Practitioner Adult Health; OTHER PHYSICIAN Internal Medicine Cardiovascular Disease
DX: I48.19 Other persistent atrial fibrillation (principal); I45.10 Unspecified right bundle-branch block; I48.4 Atypical atrial flutter; I48.0 Paroxysmal atrial fibrillation; Z79.01 Long term (current) use of anticoagulants; Z79.899 Other long term (current) drug therapy
CPT/HCPCS: C1769; C1894; C1730; C1733; C1759; 36415; 80053; 85025; 85347; 86850; 86900; 86901; 93005; 93655; 93656; 93657